=== PATIENT | male | born 1945 | race Caucasian/White ===

== ENCOUNTER → 2016-05-22 | Outpatient (CLI) | payer OTHER, MEDICARE ==
[~2016-05-22] VITALS: Ht 177.8 cm; Wt 96.2 kg
[~2016-05-22] MED LIST: ASPIR 8181 MG PO; ATORVASTATIN CA40 MG PO; IBUPROFEN 200200 M1 PO; NORVASC2.5 MG PO; NORVASC5 MG PO; PRILOSEC20 MG PO; TRAMADOL 50 MG50 MG PO; ZESTORETIC 20-1 EAC2 PO; ZYRTEC10 M4 PO
--- NOTE | ~2016-05-22 | HPC ---
[facility] [place] [address] PAIN MANAGEMENT CONSULTATION Name: SHANICE HENSON Room #: REG [facility] Abhay#: [id number] Admission: 05/22/16 Attend Phys: Jairo Armas DO Discharge: Date of : 43 Report #: [id number] THIS REPORT FOR: //name// CC: Lorenzo Armas The patient is a 71-year-old gentleman, prior seen 09/25/2014 about a year and a half ago for cervical radicular symptoms. The patient had fallen 2 years prior in the summer 2012, suffered a closed head injury, developed pain in the neck, left shoulder and arm. The radicular symptoms are fairly nominal initially with over the subsequent year developed radicular symptoms. When I saw him in September, we did one cervical epidural injection with significant improvement in baseline pain. Returns to pain clinic today noting left neck, shoulder, and arm pain has recurred. He denies recent antecedent trauma. Rates his pain 3-5 on a 0-10 visual analog scale. Describes pain in the left shoulder with tingling sensation in the forearm, paresthesia going into the middle fingers. He has tried chiropractic manipulation, OTC ibuprofen, unfortunately he is taking up to 2400 mg a day and he has a single kidney due to history of renal carcinoma. REVIEW OF SYSTEMS: Complete review of systems is again gone over with the patient. History of hypertension, treated with amlodipine, gastroesophageal reflux for which he takes omeprazole. 1989 had left renal carcinoma and treated with nephrectomy required no adjuvant chemo or radiation therapy. Dyslipidemia, takes atorvastatin. PHYSICAL EXAMINATION: GENERAL: Shows 5 feet 10 inches, 210 pounds gentleman, BMI is 30.4 kilograms per meter squared. VITAL SIGNS: Blood pressure is modestly elevated at 150/93, pulse 74, respirations 16. NEUROLOGIC: Alert and oriented to person, place and time, judged to be a reasonable historian. NECK: Cervical range of motion is limited. Positive Lhermitte's. MUSCULOSKELETAL: Left arm abduction is dramatically limited about 45 degrees, deltoid and biceps strength is diminished on the left compared to the right. The patient does note some subjective loss of proprioception. No gait is tandem. DIAGNOSTIC STUDIES: Include MRI of the cervical spine accomplished 05/09/2016. Does show at C6-C7, moderate facet hypertrophy bilaterally creating neural foraminal narrowing. ASSESSMENT: Symptomatic cervical radiculopathy, acute exacerbation of chronic radicular symptoms. RECOMMENDATIONS: 1. Cervical epidural injection under fluoroscopy today. [address] [address] PAIN MANAGEMENT CONSULTATION Name: SHANICE HENSON Room #: REG [facility] Abhay#: [id number] Admission: 05/22/16 Attend Phys: Jairo Armas DO Discharge: Date of : 44 Report #: [id number] 2. Decrease ibuprofen use by at least 50%. 3. I have taken the liberty of writing for tramadol 50 mg 1 tablet 3 or 4 times a day as needed for pain, dispensed #100 tablets, no refill. 4. Follow up in 3 weeks for reevaluation. Cancel if doing well. PROCEDURE: Cervical epidural injection under fluoroscopy. PROCEDURE NOTE: After written and informed consent was obtained including risk of dural puncture, spinal cord trauma, paralysis and increased pain, the patient was taken to the fluoroscopy suite and placed in the prone position, with appropriate abdominal bolstering, neck was flexed, palms under the thighs. Skin was prepped with ChloraPrep. Sterile draping was applied. Skin wheal with 1% Xylocaine was raised. A 22-gauge 3-1/2 inch epidural Tuohy needle was placed via a midline approach at the C7-T1 interspace, advanced under biplanar fluoroscopy using continuous loss of resistance. With appropriate loss of resistance at the expected depth on lateral view, the glass loss of resistance syringe was disconnected. A low volume extension tubing was connected to the needle and a 5 mL syringe. Negative aspiration for cerebrospinal fluid or blood was noted. A 1 mL of Omnipaque was injected which showed spread within the epidural space on biplanar fluoroscopy. This was followed with 80 mg of triamcinolone plus 1 mL of 1.5% preservative Xylocaine. Needle was withdrawn to the interspinous ligament, 0.5 mL of Xylocaine was used to flush the needle. The needle was then completely withdrawn. The area was cleansed. Band-Aid was applied. The patient was allowed to move off the procedure table and ambulated to the recovery room, monitored for an appropriate period of time, discharged in good and stable condition. <ELECTRONICALLY SIGNED> By: Jairo Armas DO 05/26/16 1228 [id number] Jairo Armas DO /nt
[2016-05-22 13:28] VITALS: BP 150/93
== END ==
LOC: PAIN 07:16
DX: M54.12 Radiculopathy, cervical region (principal); I10 Essential (primary) hypertension; K21.9 Gastro-esophageal reflux disease without esophagitis; E78.5 Hyperlipidemia, unspecified; Z85.528 Personal history of other malignant neoplasm of kidney; Z90.49 Acquired absence of other specified parts of digestive tract

== ENCOUNTER → 2016-12-22 | Outpatient (CLI) | payer OTHER, MEDICARE ==
[~2016-12-22] VITALS: Ht 177.8 cm; Wt 99.0 kg
[~2016-12-22] MED LIST changes: +IRBESARTAN300 MG PO
--- NOTE | ~2016-12-22 | HPC ---
[facility] [address] [place] [address] PAIN MANAGEMENT CONSULTATION Name: SHANICE HENSON Room #: REG [facility] Neri.#: [id number] Admission: 12/22/16 Attend Phys: Jairo Armas DO Discharge: Date of : 44 Report #: [id number] THIS REPORT FOR: //name// CC: Lorenzo Armas HISTORY OF PRESENT: The patient is a pleasant 71-year-old gentleman, prior seen in the pain clinic back in May for symptomatic cervical radiculopathy. He was given epidural injection at that time, initially had first injection on 05/22/2016. Noted near 100% relief of symptoms for sometime, though pain has gradually begun to recur. The patient specifically states he had 80% relief from May through November. His pain has begun to recur. He had sought clinical manager home care with nominal efficacy. His son is a chiropractor and gives him some adjustments. He rates the pain as 0-1 on a VAS. He has kept true to his word to stop golf for years, now not golfed for about 6 months. Notes pain in the left neck, shoulder ____ bad as before, but is starting to become problematic again. He uses ibuprofen. PHYSICAL EXAMINATION: Shows 71-year-old gentleman, BMI is 31.3 kilograms per meter squared. Blood pressure shows modest hypertension 146/96, pulse 69, respirations 16. Cervical range of motion is limited. Positive Lhermitte's pain. Going in the left shoulder and arm. Has a positive Tinel's left radial, but this seems to be unrelated to the specific left cervical radicular symptoms. Reviewed his MRI from 05/09/2016, C6-C7 notes moderate facet hypertrophy bilaterally, neural foraminal narrowing at this level. This does correspond to left C6 radiculopathy. ASSESSMENT: Symptomatic cervical radiculopathy by clinical exam and history, incremental improvement following an epidural injection. RECOMMENDATIONS: Cervical epidural injection under fluoroscopy. Follow up simply as needed. PROCEDURE: Cervical epidural steroid injection under fluoroscopy. PROCEDURE NOTE: After written and informed consent was obtained including risk of dural puncture, spinal cord trauma, paralysis and increased pain, the patient was taken to the fluoroscopy suite and placed in the prone position, with appropriate abdominal bolstering, neck was flexed, palms under the thighs. Skin was prepped with ChloraPrep. Sterile draping was applied. Skin wheal with 1% Xylocaine was raised. A 22-gauge 3-1/2 inch epidural Tuohy needle was placed via a midline approach at the C7-T1 interspace, advanced under biplanar fluoroscopy using continuous loss of resistance. With appropriate loss of resistance at the expected depth on lateral view, the glass loss of resistance syringe was disconnected. A low volume extension tubing was connected to the needle and a 5 mL syringe. Negative aspiration for cerebrospinal fluid or blood [facility] [address] [place] [address] PAIN MANAGEMENT CONSULTATION Name: SIXTOSHANICE Room #: REG [facility] Blank#: [id number] Admission: 12/22/16 Attend Phys: Jairo Armas DO Discharge: Date of : 43 Report #: [id number] was noted. A 1 mL of Omnipaque was injected which showed spread within the epidural space on biplanar fluoroscopy. This was followed with 80 mg of triamcinolone plus 1 mL of 1.5% preservative Xylocaine. Needle was withdrawn to the interspinous ligament, 0.5 mL of Xylocaine was used to flush the needle. The needle was then completely withdrawn. The area was cleansed. Band-Aid was applied. The patient was allowed to move off the procedure table and ambulated to the recovery room, monitored for an appropriate period of time, discharged in good and stable condition. By: [id number] Jairo Armas DO /nt
[2016-12-22 13:04] VITALS: BP 146/96
== END | disposition home or self-care (01) ==
LOC: PAIN 07-03 14:50
DX: M54.12 Radiculopathy, cervical region (principal); Z68.31 Body mass index [BMI] 31.0-31.9, adult; I10 Essential (primary) hypertension

== ENCOUNTER → 2019-05-27 | Outpatient (CLI) | payer OTHER, MEDICARE ==
[~2019-05-27] VITALS: Ht 177.8 cm; Wt 99.8 kg
[~2019-05-27] MED LIST changes: +CHLORTHALIDONE25 MG PO; +CLARITIN10 M3 PO; +IBUPROFEN200 M1 PO; +TOPROL XL25 MG PO; +VITAMIN D400 UNIT PO
[2019-05-27 10:24] VITALS: BP 152/101
--- NOTE | 2019-05-27 10:26 | NUR ---
Pain Clinic Assessment: 1. History of Osteoarthritis: Not Applicable History of Rheumatoid Arthritis: Not Applicable 2. Height: 5 ft. 10 in. 177.8 cm. Weight: 220.0 lb. oz. 99.792 kg. Patient's BMI: 31.6 3. Vital Signs: BP: 152/101 Pulse: 73 Resp: 14 Temp: 02 Sat: 95 ECG Mon: 4. Pain Intensity: 4 5. Fall Risk: Dizziness: Y Needs help standing or walking: N Fallen in the last 3 months: N Fall risk comments: 6. Patient on Blood Thinner: None 7. History of Hypertension: Y 8. Opioid Therapy greater than 6 weeks: N Opiate Contract Signed: 9. Risk Assessment Tool Provided: 10. Functional Assessment Tool: 11. Recreational Drug Use: Never Drug Type: Tobacco Use: Never Smoker Tobacco Type: Amount or Packs/day: How Many Years: Alcohol Use: Yes Frequency: Special Occasions Quant: 1-2 WEEK ENDS
--- NOTE | 2019-06-03 08:40 | HPC ---
[facility] [address] [place] [address] PAIN MANAGEMENT CONSULTATION Name: SHANICE HENSON Room #: REG [facility] Neri.#: [id number] Admission: 05/27/19 Attend Phys: Anita Jackson MD Discharge: Date of : 44 Report #: [id number] THIS REPORT FOR: cc: Lorenzo Engle,Anita Fernando MD ~ THIS REPORT FOR: //name// CC: Lorenzo Jackson DATE OF SERVICE: 05/27/2019 CHIEF COMPLAINT: Cervical, neck pain and left shoulder pain. HISTORY: The patient is a 74-year-old gentleman who has been referred to the pain clinic for pain and discomfort involving his neck. He has had pain and discomfort involving the cervical C5, C6 and C7 areas. Over the past 5 years, he has noted pain, which has waxed and waned. He had an MRI about 3 years ago. He was noted to have persistent stenosis. Notes that at night, his pain can increase. Notes that certain movements can exacerbate his pain. Notes more pain when he is lying on his side. He feels that there is less problems during the daytime. He is distracted by his activities and has less discomfort. He has used ibuprofen. He has not had surgery. He has had back surgery in the past. In the 1970s, he had injections in his lower back. He is having pain in the left arm. Pain radiates down into the shoulder. He describes the intensity of pain at this juncture as a 4/10. Describes as steady, periodic, crushing, and throbbing. It can rise to the level of 8. ALLERGIES: No known drug allergies. CURRENT MEDICATIONS: Vitamin D 400 units, Claritin 10 mg, ibuprofen 200 mg, 800 mg daily, chlorthalidone 25 mg, metoprolol 25 mg XL, Norvasc 5 mg, aspirin 81 mg, Lipitor 40 mg, Prilosec 20 mg. PAST MEDICAL HISTORY: 1. Cervical radiculopathy. 2. Hypertension. 3. Hypercholesterolemia. 4. GI irritation. 5. Left renal cell cancer. 6. Allergic rhinitis. 7. GERD. PAST SURGICAL HISTORY: 1. Left nephrectomy and cholecystectomy. [facility] [address] [place] [address] PAIN MANAGEMENT CONSULTATION Name: SHANICE HENSON Room #: REG [facility].#: [id number] Admission: 05/27/19 Attend Phys: Anita Jackson MD Discharge: Date of : 43 Report #: [id number] 2. Right knee scope. 3. Left knee surgery. 4. Right inguinal hernia and revision. 5. Tonsillectomy. 6. Appendectomy. 7. Hydrocele surgery. 8. Dysplastic nevi. REVIEW OF SYSTEMS: Generally good health, fatigue, weakness, wears glasses, hearing loss, earaches, mouth sores, voice changes, asthma, memory loss, confusion, excessive urination. PAIN CLINIC ASSESSMENT AND PQRS: 1. History of osteoarthritis, some arthritic changes in the neck. 2. Height 5 feet 10 inches, weight 220 pounds, BMI is 31.6. 3. Vital signs: Blood pressure 151/101, pulse 73, respiratory rate 14, room air saturation 95%. 4. Pain intensity, 4/10. 5. Fall history. The patient has not fallen in the last 3 months. 6. Blood thinner. The patient is not on a blood thinning medication. 7. Hypertension. The patient is being treated for hypertension. 8. Opioids greater than 6 weeks. The patient received medication from one source. 9. Risk assessment tool, low for opioids. 10. Functional assessment tool, . 11. Recreational drug use. The patient denies. 12. Tobacco. The patient has never smoked. 13. Alcohol. The patient drinks 1-2 beverages on the weekend. LABORATORY DATA: MRI of the cervical spine dated 05/09/2016 reveals: 1. C4-C5 and C5-C6, there is a mild narrowing of the central spinal canal and neural foramen and there is facet hypertrophy. 2. C6-C7, central spinal canal is mildly narrowed and there is a moderate facet hypertrophy bilaterally and the bony neural foramen are mildly narrowed. IMPRESSION: Abnormal study demonstrating posterior bulging of the intervertebral disk at C4-C5, C5-C6 and C6-C7. This is most prominent at C6-C7. There is associated central spinal canal stenosis and neural foraminal narrowing at these various levels. PHYSICAL EXAMINATION: GENERAL: The patient is a well-developed, well-nourished, white male. Appears his stated age. He is alert and oriented x 3. His affect is appropriate. Speech is fluent. HEENT: Normocephalic, atraumatic. Extraocular eye muscles intact. Sclerae nonicteric. Mucous membranes are moist. [facility] [address] [place] [address] PAIN MANAGEMENT CONSULTATION Name: SHANICE HENSON Room #: ART[facility] Blank#: [id number] Admission: 05/27/19 Attend Phys: Anita Jackson MD Discharge: Date of : 43 Report #: [id number] NECK: With some decreased range of motion. The patient has pain and discomfort that is radiating down into the left shoulder area as well as down into the left arm with numbness in his hands as well as some numbness on the right side. Notes a crushing, throbbing tenderness and soreness in these areas. HEART: Regular rate. ABDOMEN: Nontender. EXTREMITIES: Upper extremity muscle strength judged to be 5-/5 for the major muscle groups in the upper extremity. The patient without significant scoliosis, kyphosis, or lordosis. IMPRESSION: Cervical radiculopathy. RECOMMENDATIONS: We discussed treatment options with the patient. Risks and benefits of an epidural steroid injection were discussed. Possible complications of the procedure were reviewed. They include but are not limited to infection, worsening of pain, no improvement in pain, nerve damage and the patient elects to proceed. PROCEDURE NOTE: The patient was taken to the procedure area. He was then assisted in getting on examination table. A Betadine solution was applied to the area. After this area had been sterilely prepped, a 0.25% bupivacaine was infiltrated at C7/T1. Fluoroscopy using anterior, posterior as well as lateral viewing were implemented. After this area had been anesthetized, a 17-gauge Tuohy with loss of resistance technique was used to gain access to the epidural space. There was no CSF, heme or paresthesia. A total of 120 mg triamcinolone was injected. The patient tolerated the procedure well. There were no complications. The patient's pain decreased from 4-0 at the time of discharge. He will follow up in the future. Approximately 13 seconds fluoro time was used. We would like to thank you for letting us participate in his care. We hope he continues to improve. <ELECTRONICALLY SIGNED> By: Anita Jackson MD 06/03/19 0840 [id number] Anita Jackson MD /PMT
== END | disposition home or self-care (01) ==
LOC: PAIN 06:46
DX: M54.12 Radiculopathy, cervical region (principal); G89.29 Other chronic pain; I10 Essential (primary) hypertension; E78.00 Pure hypercholesterolemia, unspecified; K21.9 Gastro-esophageal reflux disease without esophagitis; Z98.890 Other specified postprocedural states; Z79.899 Other long term (current) drug therapy; Z90.49 Acquired absence of other specified parts of digestive tract; Z90.5 Acquired absence of kidney; Z79.82 Long term (current) use of aspirin

== ENCOUNTER → 2020-02-24 | Outpatient (CLI) | payer OTHER, MEDICARE ==
[~2020-02-24] VITALS: Ht 177.8 cm; Wt 97.5 kg
[~2020-02-24] MED LIST changes: -ATORVASTATIN CA40 MG PO; +HYDROCODON-ACE1 EAC7 PO; +OMEPRAZOLE40 MG PO; -PRILOSEC20 MG PO; +ROSUVASTATIN CA10 MG PO; +TRIAMTERENE/HCT1 CA1 PO; +TYLENOL 8 HOUR650 MG PO
--- NOTE | ~2020-02-24 | HPC ---
[facility] [place] [address] [place] [address] PAIN MANAGEMENT CONSULTATION Name: SHANICE HENSON Room #: REG [facility] He.#: [id number] Admission: 02/24/20 Attend Phys: Anita Jackson MD Discharge: Date of : 43 Report #: [id number] THIS REPORT FOR: cc: Lorenzo Engle,Anita Fernando MD ~ CC: Lorenzo Jackson DATE OF SERVICE: 02/24/2020 CHIEF COMPLAINT: Cervical neck pain has returned. HISTORY: The patient is a 74-year-old gentleman who has been seen in the pain clinic in the past. He does suffer from cervical radiculopathy. He has pain involving the C5, C6 and C7 areas. Over the past few years, he has noted that his pain does wax and wane. At this juncture, he has noted worsening of his pain and discomfort. He has returned to the pain clinic with the hopes of undergoing another cervical epidural steroid injection to help with the pain. He recently had thyroid surgery. ALLERGIES: HE DOES NOT USE NONSTEROIDAL ANTI-INFLAMMATORY MEDICATIONS BECAUSE HE HAS ONE KIDNEY. CURRENT MEDICATIONS: 1. Hydrocodone 5/325 one p.o. q. 4 hours p.r.n. 2. Tylenol 625 mg. 3. Triamterene/hydrochlorothiazide 37.5. 4. Vitamin D3. 5. Topral-XL 25 mg. 6. Norvasc 5 mg. 7. Aspirin 81 mg. 8. Rosuvastatin 10 mg. 9. Omeprazole 40 mg. PAIN CLINIC ASSESSMENT AND PQRS: 1. The patient does have a history of osteoarthritis and changes in his neck. 2. Height 5 feet 10 inches, weight 215 pounds, BMI is 30. 3. Vital signs: Blood pressure 129/88, pulse 79, respiratory rate is 16, room air saturation 97%. 4. Pain intensity 1-2/10 with pain involving the left shoulder. 5. Fall risk. The patient has not fallen in the last 3 months. 6. Blood thinner. The patient is not on a blood thinning medication. 7. Hypertension. The patient is being treated for hypertension. 8. Opioids greater than 6 weeks. The patient is not on an extensive amount of opioids [address] [address] PAIN MANAGEMENT CONSULTATION Name: SHANICE HENSON Room #: REG [facility]#: [id number] Admission: 02/24/20 Attend Phys: Anita Jackson MD Discharge: Date of : 43 Report #: [id number] 9. Risk assessment tool, reviewed. 10. Functional assessment tool . 11. Recreational drug use: The patient denies. 12. Tobacco: The patient denies. 13. Alcohol. The patient occasionally drinks alcoholic beverages. PHYSICAL EXAMINATION: GENERAL: The patient is a well-developed, well-nourished white male. Appears his stated age. He is alert and oriented x 3. His affect is appropriate. Speech is fluent. HEENT: Normocephalic, atraumatic. Extraocular eye muscles intact. Sclerae nonicteric. Mucous membranes are moist. The patient is wearing a facial covering. He has a well-healed scar in the area of the thyroid. MUSCULOSKELETAL: Upper extremity muscle strength is judged to be 5-/5. The patient has pain and discomfort involving the left arm, which radiates down to the left shoulder. HEART: Regular rate. ABDOMEN: Nontender. EXTREMITIES: Lower extremity muscle strength judged to be 5-/5 for the major muscle groups in the lower extremity. IMPRESSION: 1. Cervical radiculopathy with pain radiating down into his arm, forearm and involving his fingers on the left side. 2. Hypertension. 3. Hypercholesterolemia. 4. GI irritation. 5. Left renal cell cancer, status post nephrectomy. 6. Allergic rhinitis. 7. Gastroesophageal reflux disease. RECOMMENDATIONS: We discussed treatment options with the patient. At this juncture, he rates his pain as a 1-2/10. He has recently had a surgery in the thyroid area. He has recently stopped use of an antibiotic protocol. At this juncture, we will have the patient wait a couple of weeks to make sure that things have healed up nicely. If his pain continues to be problematic, we will then consider a cervical epidural steroid at that time. He has been aware of the COVID-19 and it being pandemic. Again, we discussed the possible problems with COVID-19 infections. Steroids can decrease one's immune response. The patient will return in the near future if his pain continues to be problematic at the next visit, we will proceed with a cervical epidural steroid injection. [address] [address] PAIN MANAGEMENT CONSULTATION Name: SHANICE HENSON [id number] Admission: 02/24/20 Attend Phys: Anita Jackson MD Discharge: Date of : 43 Report #: [id number] We would like to thank you for letting us participate in his care. We hope he continues to do well. By: [id number] Anita Jackson MD /nt
[2020-02-24 08:17] VITALS: BP 129/88
--- NOTE | 2020-02-24 08:48 | NUR ---
Pain Clinic Assessment: 1. History of Osteoarthritis: Not Applicable History of Rheumatoid Arthritis: Not Applicable 2. Height: 5 ft. 10 in. 177.8 cm. Weight: 215.0 lb. oz. 97.524 kg. Patient's BMI: 30.8 3. Vital Signs: BP: 129/88 Pulse: 79 Resp: 16 Temp: 02 Sat: 97 ECG Mon: 4. Pain Intensity: 2 5. Fall Risk: Dizziness: N Needs help standing or walking: N Fallen in the last 3 months: N Fall risk comments: 6. Patient on Blood Thinner: None 7. History of Hypertension: Y 8. Opioid Therapy greater than 6 weeks: N Opiate Contract Signed: 9. Risk Assessment Tool Provided: 10. Functional Assessment Tool: 11. Recreational Drug Use: Never Drug Type: Tobacco Use: Never Smoker Tobacco Type: Amount or Packs/day: How Many Years: Alcohol Use: Yes Frequency: Quant:
== END ==
LOC: PAIN 02-23 12:19
PROVIDERS: ATTEND Anesthesiology Pain Medicine
DX: M54.12 Radiculopathy, cervical region (principal); I10 Essential (primary) hypertension; E78.00 Pure hypercholesterolemia, unspecified; K21.9 Gastro-esophageal reflux disease without esophagitis; Z85.820 Personal history of malignant melanoma of skin; Z85.53 Personal history of malignant neoplasm of renal pelvis

== ENCOUNTER → 2020-03-09 | Outpatient (CLI) | payer OTHER, MEDICARE ==
[~2020-03-09] VITALS: Ht 177.8 cm; Wt 97.8 kg
--- NOTE | ~2020-03-09 | HPC ---
[facility] [place] [address] PAIN MANAGEMENT CONSULTATION Name: SHANICE HENSON Room #: REG Pranav SkinnerBaronMalinda.#: [id number] Admission: 03/09/20 Attend Phys: Anita Jackson MD Discharge: Date of : 43 Report #: [id number] THIS REPORT FOR: cc: Lorenzo Engle,Anita Fernando MD ~ CC: Lorenzo Jackson DATE OF SERVICE: 03/09/2020 CHIEF COMPLAINT: "Cervical pain has returned and I have come for another epidural injection." HISTORY: The patient is a 74-year-old gentleman who has been seen in the pain clinic in the past because of cervical radiculopathy. He has had some pain and discomfort, which involves the cervical nerves in C5, C6 and C7 areas. Over the last 5 years, his pain has waxed and waned. MRI showed more persistent stenosis. That was performed about 3 years ago. He is having more pain at night. Pain has awakened him. He has used hydrocodone and found that it is somewhat helpful. At this juncture, he would like to proceed with another cervical epidural steroid injection. He recently had thyroid surgery and has been given the okay by his surgeon to proceed with an injection. ALLERGIES: ____ -- PATIENT DOES NOT TAKE NONSTEROIDAL ANTI-INFLAMMATORY MEDICATIONS BECAUSE OF HIS KIDNEYS. CURRENT MEDICATIONS: 1. Hydrocodone 5/325 one p.o. q. 4 hours p.r.n. pain. 2. Tylenol 650 mg. 3. Triamterene/hydrochlorothiazide 37.25. 4. Vitamin D3. 5. Topral-XL 25 mg. 6. Norvasc 5 mg. 7. Aspirin 81 mg. 8. Rosuvastatin 10 mg. 9. Omeprazole 40 mg. PAIN CLINIC ASSESSMENT AND PQRS: 1. History of osteoarthritis with some arthritic changes in his neck. 2. Height 5 feet 10 inches, weight 215 pounds, BMI 30.9. 3. Vital signs: Blood pressure 138/80, heart rate 78, respiratory rate 18, room air saturation 98%. 4. Pain intensity 5/10. 5. Fall history: The patient has not fallen. 6. Blood thinner. The patient is not on a blood thinning medication. [address] [address] PAIN MANAGEMENT CONSULTATION Name: SHANICE HENSON Room #: REG [facility]#: [id number] Admission: 03/09/20 Attend Phys: Anita Jackson MD Discharge: Date of : 43 Report #: [id number] 7. Hypertension. The patient is being treated for hypertension. 8. Opioids greater than 6 weeks. The patient receives medication from one source. 9. Risk assessment tool, low for opioid use. 10. Functional assessment tool . 11. Recreational drug use: The patient denies. 12. Tobacco: The patient has never smoked. 13. Alcohol: The patient drinks about 2 alcoholic beverages monthly. PHYSICAL EXAMINATION: GENERAL: The patient is a well-developed, well-nourished white male. Appears his stated age. He is alert and oriented x 3. His affect is appropriate. Speech is fluent. HEENT: Normocephalic, atraumatic. Extraocular eye muscles intact. Sclerae nonicteric. Mucous membranes are moist. The patient is wearing a facial covering. EXTREMITIES: Complains of pain and discomfort with pain radiating down into the left side with pain radiating down into his arm and forearm down to his fingers. ASSESSMENT: 1. Cervical radiculopathy. 2. Hypertension. 3. Hypercholesterolemia. 4. GI irritation. 5. Left renal cell cancer, status post nephrectomy. 6. Allergic rhinitis. 7. Gastroesophageal reflux disease. RECOMMENDATIONS: We discussed treatment options with the patient. Risks and benefits of a cervical epidural steroid injection were discussed. Possible complications of the procedure, which could include but are not limited to infection, worsening of pain, nerve damage were discussed. We also discussed the problems with COVID-19. COVID-19 is pandemic. Should the patient become infected as a result of the virus, he may have a more difficult time with the virus given that steroids can decrease one's immunity. The patient is aware of this and elects to proceed. He has talked with his primary surgeon because of his recent thyroid surgery and feels that it is okay for him to proceed. PROCEDURE NOTE: The patient was taken to the procedure area. He was then assisted in getting on the examination table. His back was sterilely prepped with a Betadine solution. A pillow was placed under his chest. His neck was sterilely prepped with a Betadine solution, which was allowed to dry on 3 occasions. A 0.25% bupivacaine was infiltrated at the C7-T1 interspace. A 17-gauge Tuohy with loss of resistance technique was used to gain access to the epidural space. There was no CSF, heme or paresthesia. A total of 80 mg Depo-Medrol, 40 mg triamcinolone and 2 mL of 0.25% bupivacaine was injected. [facility] [address] [place] [address] PAIN MANAGEMENT CONSULTATION Name: SHANICE HENSON Room #: REG MATIAS Blank#: [id number] Admission: 03/09/20 Attend Phys: Anita Jackson MD Discharge: Date of : 43 Report #: [id number] The patient tolerated the procedure well. He remained in the pain clinic for an appropriate amount of time. He will follow up in the future as needed. A script for hydrocodone 5 mg 1 p.o. t.i.d., #90 tablets has been provided. He will call us if he has any concerns. We would like to thank you for letting us participate in his care. We hope he continues to improve. By: [id number] Anita Jackson MD /nt
[2020-03-09 08:07] VITALS: BP 138/80
== END | disposition home or self-care (01) ==
LOC: PAIN 06:48
PROVIDERS: ATTEND Anesthesiology Pain Medicine
DX: M54.12 Radiculopathy, cervical region (principal); G89.29 Other chronic pain; I10 Essential (primary) hypertension; E78.00 Pure hypercholesterolemia, unspecified; Z85.528 Personal history of other malignant neoplasm of kidney; Z98.890 Other specified postprocedural states; Z79.899 Other long term (current) drug therapy

== ENCOUNTER → 2020-09-21 | Outpatient (CLI) | payer OTHER, MEDICARE ==
[~2020-09-21] VITALS: Ht 177.8 cm; Wt 95.4 kg
[2020-09-21 08:12] VITALS: BP 134/77
--- NOTE | 2020-09-21 08:29 | NUR ---
Pain Clinic Assessment: 1. History of Osteoarthritis: NECK History of Rheumatoid Arthritis: Not Applicable 2. Height: 5 ft. 10 in. 177.8 cm. Weight: 210.4 lb. oz. 95.437 kg. Patient's BMI: 30.2 3. Vital Signs: BP: 134/77 Pulse: 66 Resp: 16 Temp: 02 Sat: 98 ECG Mon: 4. Pain Intensity: 2 TO 3; 8 AT NIGHT 5. Fall Risk: Dizziness: N Needs help standing or walking: N Fallen in the last 3 months: N Fall risk comments: PT DENIES 6. Patient on Blood Thinner: None 7. History of Hypertension: Y 8. Opioid Therapy greater than 6 weeks: N Opiate Contract Signed: 9. Risk Assessment Tool Provided: LOW-0 10. Functional Assessment Tool: 11. Recreational Drug Use: Never Drug Type: Tobacco Use: Never Smoker Tobacco Type: Amount or Packs/day: How Many Years: Alcohol Use: Yes Frequency: Special Occasions Quant: 1
== END | disposition home or self-care (01) ==
LOC: PAIN 07:18
PROVIDERS: ATTEND Anesthesiology Pain Medicine
DX: M54.12 Radiculopathy, cervical region (principal); G89.29 Other chronic pain; I10 Essential (primary) hypertension; E78.00 Pure hypercholesterolemia, unspecified; K21.9 Gastro-esophageal reflux disease without esophagitis; Z98.890 Other specified postprocedural states; Z79.899 Other long term (current) drug therapy; Z85.53 Personal history of malignant neoplasm of renal pelvis; Z90.49 Acquired absence of other specified parts of digestive tract; Z88.8 Allergy status to other drugs, medicaments and biological substances

== ENCOUNTER → 2020-11-16 | Outpatient (CLI) | payer OTHER, MEDICARE ==
[~2020-11-16] VITALS: Ht 177.8 cm; Wt 93.1 kg
[2020-11-16 13:13] VITALS: BP 111/72
--- NOTE | 2020-11-16 13:51 | NUR ---
Pain Clinic Assessment: 1. History of Osteoarthritis: NECK History of Rheumatoid Arthritis: Not Applicable 2. Height: 5 ft. 10 in. 177.8 cm. Weight: 205.2 lb. oz. 93.078 kg. Patient's BMI: 29.4 3. Vital Signs: BP: 111/72 Pulse: 71 Resp: 16 Temp: 02 Sat: 99 ECG Mon: 4. Pain Intensity: 4 NOW 8-9 AT TIMES 5. Fall Risk: Dizziness: N Needs help standing or walking: N Fallen in the last 3 months: N Fall risk comments: PT DENIES 6. Patient on Blood Thinner: None 7. History of Hypertension: Y 8. Opioid Therapy greater than 6 weeks: N Opiate Contract Signed: 9. Risk Assessment Tool Provided: LOW-0 10. Functional Assessment Tool: 11. Recreational Drug Use: Never Drug Type: Tobacco Use: Never Smoker Tobacco Type: Amount or Packs/day: How Many Years: Alcohol Use: Yes Frequency: Quant:
== END | disposition home or self-care (01) ==
LOC: PAIN 06:52
PROVIDERS: ATTEND Anesthesiology Pain Medicine
DX: M54.12 Radiculopathy, cervical region (principal); G89.29 Other chronic pain; I10 Essential (primary) hypertension; E78.00 Pure hypercholesterolemia, unspecified; K21.9 Gastro-esophageal reflux disease without esophagitis; Z98.890 Other specified postprocedural states; Z79.899 Other long term (current) drug therapy; Z85.528 Personal history of other malignant neoplasm of kidney; Z90.49 Acquired absence of other specified parts of digestive tract; Z88.8 Allergy status to other drugs, medicaments and biological substances